=== PATIENT | male | born 1960 | race Caucasian/White ===

== ENCOUNTER 2017-01-27 21:04 | Emergency (ER) | payer MEDICARE ==
[~2017-01-27] VITALS: Ht 165.1 cm; Wt 67.3 kg
[~2017-01-27 21:04] MED LIST: ALBU-136 IH; ASCO500C19 PO; CLOP75TA55 PO; FLUT50PO IH; LEVE500T18 PO; LORA10TA19 PO; PHEN100C14 PO; PRED10TA5 PO; [UNRECOGNIZED DRUG - CODE] PO
[2017-01-27 21:11] VITALS: BP 131/66
[2017-01-27 21:59] LABS: HEMATOCRIT 42.7 % (36-52); HEMOGLOBIN 14.7 g/dL (12.0-18.0); MEAN CORPUSCULAR HEMOGLOBIN 32 pg (27-31); MEAN CORPUSCULAR HGB CONC 34 g/dL (33-37); MEAN CORPUSCULAR VOLUME 92 fL (80-94); PLATELET COUNT (AUTO) 184 K/uL (140-450); RED BLOOD CELL COUNT(AUTO) 4.62 MIL/uL (4.20-6.10); RED CELL DISTRIBUTION WIDTH 12.4 % (11.6-13.7); WHITE BLOOD COUNT (AUTO) 5.1 K/uL (4.8-10.8)
[2017-01-27 22:03] LABS: ANION GAP 13.4 (8-16); CARBON DIOXIDE 26.3 mmol/L (21-32); POTASSIUM 3.7 mmol/L (3.5-5.1); TOTAL BILIRUBIN 0.5 mg/dL (0.0-1.0)
--- NOTE | 2017-01-27 22:14 | NUR ---
TO ER BED 2
[2017-01-27 22:17] LABS: LYMPHOCYTES % (MANUAL) 26 % (20-46); MONOCYTES % (MANUAL) 8 % (5-12)
--- NOTE | 2017-01-27 22:25 | NUR ---
CAME IN WITH C/O FEVER AND COUGH SINCE WEDNESDAY.
--- NOTE | 2017-01-27 23:10 | NUR ---
ALL RESULTS BACK AND NOTED BY ERMD AND FOR D/C.
[2017-01-27 23:37] VITALS: BP 112/70
--- NOTE | 2017-01-27 23:37 | NUR ---
Patient discharged with v/s stable. Written and verbal after care instructions given and explained. Patient alert, oriented and verbalized understanding of instructions. Wheel Chair Assisted with to car. All questions addressed prior to discharge. ID band removed. Patient advised to follow up with PMD. Rx of PROMETHAZINE HYDROCHLORIDE/DEXTROMETHORPHAN HYDROBROMIDE given. Patient educated on indication of medication including possible reaction and side effects. Opportunity to ask questions provided and answered.
== END 2017-01-27 23:37 | disposition home or self-care (01) ==
LOC: MED 21:04
DX: J20.9 Acute bronchitis, unspecified (principal); I10 Essential (primary) hypertension; J45.909 Unspecified asthma, uncomplicated; Z86.73 Personal history of transient ischemic attack (TIA), and cerebral infarction without residual deficits
CPT/HCPCS: 36415; 71010; 80053; 85025; 99285; Q0092

== ENCOUNTER 2017-05-17 09:05 | Emergency (ER) | payer MEDICARE, OTHER ==
[~2017-05-17] VITALS: Ht 167.6 cm; Wt 68.0 kg
[2017-05-17 09:47] VITALS: BP 154/81
--- NOTE | 2017-05-17 09:51 | NUR ---
PT AMBULATED TO [facility]
--- NOTE | 2017-05-17 10:10 | NUR ---
PT COMES TO ER WITH C/O COUGH AND FLU LIKE SYMPTOMS X 1 MONTH, HAS SEEN HIS PRIMARY CARE PHYSICIAN AND TAKEN ANBX(UNKNOWN) NAME X 5 DAYS WITH COUGHMEDICINE AND NOT GETTING ANY BETTER. COUGH CONTINUES AND STATES SHE IS AFRAID HE'LL GET PNA AGAIN, LAST YEAR. RESP EVEN AND UNLABORED, ON RA@98%-LS-COARSE TO RT UPPER AND LOWER LOBES. PT DENIES ANY FEVERS/CHILLS, NO N/V/D. AT BEDSIDE. PT TAKES PLAVIX FOR EMBOLI DX SEVERAL YEARS AGO.
--- NOTE | 2017-05-17 10:23 | NUR ---
DR JAY AT BEDSIDE FOR EXAM
--- NOTE | 2017-05-17 10:29 | NUR ---
PT TAKEN TO XRAY
--- NOTE | 2017-05-17 10:40 | NUR ---
PT RETURNED FROM XRAY
[2017-05-17 11:31] VITALS: BP 139/85
--- NOTE | 2017-05-17 11:32 | NUR ---
Patient discharged with v/s stable. Written and verbal after care instructions given and explained. Patient verbalized understanding. Ambulatory with by caregiver. All questions addressed prior to discharge. Advised to follow up with PMD. ALBUTEROL, PREDNISO RX
== END 2017-05-17 11:32 | disposition home or self-care (01) ==
LOC: MED 09:05
DX: J98.01 Acute bronchospasm (principal); J45.909 Unspecified asthma, uncomplicated; Z79.899 Other long term (current) drug therapy; Z86.73 Personal history of transient ischemic attack (TIA), and cerebral infarction without residual deficits; I10 Essential (primary) hypertension
CPT/HCPCS: 71046; 99284

== ENCOUNTER 2018-03-15 09:14 | Emergency (ER) | payer MEDICARE, OTHER ==
[~2018-03-15] VITALS: Ht 170.2 cm; Wt 68.0 kg
--- NOTE | 2018-03-15 09:17 | NUR ---
PT AMBULATED TO ER BED 06
[2018-03-15 09:20] VITALS: BP 134/72
--- NOTE | 2018-03-15 09:33 | NUR ---
57Y/M BIB C/O COUGH, NASAL/CHEST CONGESTION BODYACHES FATIGUE X >1 WK. BED DOWN, BEDRAIL UP X 1, ER MD AWARE AND NOTIFIED OF PT STATUS. HX; SEIZURE, CVA (RIGHT SIDED WEAKNESS) RX; KEPPRA,DILANTIN, PLAVIX
[2018-03-15] MEDS ORDERED: NACL 0.9% 1,500 ML IV SCH (09:40)
[2018-03-15] MEDS ORDERED: diphenhydrAMINE 50 MG/ML VIAL IVP ONE (09:40)
[2018-03-15] MEDS ORDERED: DEXAMETHASONE 10 MG/ML VIAL IVP ONE (09:40)
[2018-03-15] MEDS ORDERED: ALBUTEROL SULFATE/IPRATROPIU 3 ML SOL IH ONE (09:40)
[2018-03-15] MEDS ORDERED: cefTRIAXone 1,000 MG VIAL ONE (09:57)
--- NOTE | 2018-03-15 10:08 | NUR ---
[facility] THERAPY GIVEN ORDERED ENCOURAGED PATIENT FOR DEEP BREATJHING DURING THERAPY
--- NOTE | 2018-03-15 10:20 | NUR ---
RT AT BEDSIDE
--- NOTE | 2018-03-15 10:25 | NUR ---
LAB AT BEDSIDE
--- NOTE | 2018-03-15 10:36 | NUR ---
UNABLE TO DO MED. RECON. FORGOT MED. LIST AND UNSURE OF DOSAGES
[2018-03-15 10:37] LABS: BASOPHILS % (AUTO) 0.4 % (0.0-2.0); EOSINOPHILS # (AUTO) 0.3 K/uL (0-0.4); EOSINOPHILS % (AUTO) 4.1 % (0.0-4.0); HEMATOCRIT 40.3 % (36-52); HEMOGLOBIN 13.4 g/dL (12.0-18.0); MEAN CORPUSCULAR HEMOGLOBIN 31 pg (27-31); MEAN CORPUSCULAR HGB CONC 33 g/dL (33-37); MEAN CORPUSCULAR VOLUME 92.8 fL (80-94); MONOCYTES % (AUTO) 14.7 % (1.7-9.3); NEUTROPHILS # (AUTO) 2.6 K/uL (1.8-7.7); NEUTROPHILS % (AUTO) 37.8 % (42.2-75.2); PLATELET COUNT (AUTO) 209 K/uL (140-450); RED BLOOD CELL COUNT(AUTO) 4.34 MIL/uL (4.20-6.10); RED CELL DISTRIBUTION WIDTH 12.7 % (11.6-13.7); WHITE BLOOD COUNT (AUTO) 6.9 K/uL (4.8-10.8)
[2018-03-15 10:46] LABS: ANION GAP 13.7 (8-16); CARBON DIOXIDE 25.5 mmol/L (21-32); CREATININE 0.9 mg/dL (0.7-1.3); POTASSIUM 3.2 mmol/L (3.5-5.1)
[2018-03-15 10:52] LABS: ALBUMIN 3.4 g/dL (3.4-5.0); TOTAL BILIRUBIN 0.3 mg/dL (0.0-1.0)
[2018-03-15 11:25] LABS: D-DIMER < 100 ng/ml (0-400)
--- NOTE | 2018-03-15 11:30 | NUR ---
PT IS SITTING UP IN BED, WIDE AWAKE, TALKING TO , VSS AT THIS TIME
[2018-03-15] MEDS ORDERED: AZTREONAM 1,000 MG in DEXTROSE 5% 50 ML IV SCH (11:45)
[2018-03-15] MEDS ORDERED: POTASSIUM CHLORIDE 10 MEQ TABER PO ONE (11:50)
[2018-03-15] MEDS ORDERED: AZTREONAM 1,000 MG VIAL ONE (12:36)
[2018-03-15 13:18] LABS: APPEARANCE,URINE CLEAR (CLEAR); BILIRUBIN,URINE NEGATIVE (NEGATIVE); BLOOD, URINE NEGATIVE (NEGATIVE); COLOR,URINE YELLOW (YELLOW); LEUKOCYTE ESTERASE ,URINE NEGATIVE (NEGATIVE); NITRITE, URINE NEGATIVE (NEGATIVE); PH,URINE 6.5 (5.0-9.0); UGLUCOSE NEGATIVE (NEGATIVE)
--- NOTE | 2018-03-15 13:59 | NUR ---
PATIENT RESTING AT THIS TIME; NO SIGNS OF DISTRESS.
--- NOTE | 2018-03-15 15:33 | NUR ---
PT EATING IN BED AT THIS TIME WITH FAMILY AT BEDSIDE
[2018-03-15 15:56] VITALS: BP 128/69
--- NOTE | 2018-03-15 15:56 | NUR ---
Patient does not wish to proceed with medical care recommended by DR. GARZA. Patient given information related to possible complications, up to and including , which could occur as a result of leaving hospital at this time. Patient verbalizes understanding of risks involved leaving against medical advice. Patient has signed AMA form. Dr. garza prescribed phenergan and levaquin to patient before discharge.
--- NOTE | 2018-03-15 15:56 | NUR ---
Patient discharged with v/s stable. Written and verbal after care instructions given and explained. Patient alert, oriented and verbalized understanding of instructions. Ambulatory with steady gait. All questions addressed prior to discharge. ID band removed. Patient advised to follow up with PMD. Rx of promethazine and levaquin given. Patient educated on indication of medication including possible reaction and side effects. Opportunity to ask questions provided and answered.
== END 2018-03-15 15:56 | disposition left against medical advice (07) ==
LOC: MED 09:14
DX: J18.9 Pneumonia, unspecified organism (principal); J32.9 Chronic sinusitis, unspecified; J40 Bronchitis, not specified as acute or chronic; E87.2 Acidosis; D72.821 Monocytosis (symptomatic); E87.6 Hypokalemia
CPT/HCPCS: 36415; 36600; 71045; 80053; 81003; 82803; 82948; 83605; 83735; 83880; 84484; 85025; 85379; 85610; 85730; 87040; 87086; 87804; 93005; 94640; 96365; 96367; 96375; 99284; J0696; J1100; J1200; J3490; J7620; Q0092

== ENCOUNTER 2019-04-03 18:36 | Emergency (ER) | payer OTHER ==
[~2019-04-03] VITALS: Ht 165.1 cm; Wt 68.0 kg
[2019-04-03 19:20] VITALS: BP 152/74
--- NOTE | 2019-04-03 19:23 | NUR ---
WHEEL CHAIR ASSISTED BY BACK TO THE LOBBY
--- NOTE | 2019-04-03 20:17 | NUR ---
PT WHEELCHAIRED TO BED 07
--- NOTE | 2019-04-03 20:17 | NUR ---
58 Y/O MALE BIB C/O HIGH BLOOD PRESSURE TODAY. BP 152/74. DENIES HEAD ACHE OR DIZZINESS. PAIN IS A 4/10 NONRADIATING ON THE LEFT ARM AT THIS TIME. BREATHING UNLABORED AND SYMMETRICAL. DENIES N/V/D. ERMD MADE AWARE OF STATUS. SIDE RAILS X1. PLACED ON MONITOR. AT BEDSIDE. WILL CONTINUE TO MONITOR. HX: STROKE, RT SIDED WEAKNESS, HTN RX:DENIES NKDA
[2019-04-03 21:56] LABS: ANION GAP 10.9 (8-16); CARBON DIOXIDE 28.8 mmol/L (21-32); CREATININE 0.9 mg/dL (0.7-1.3); POTASSIUM 4.7 mmol/L (3.5-5.1)
[2019-04-03 22:31] VITALS: BP 143/71
--- NOTE | 2019-04-03 22:31 | NUR ---
Patient discharged with v/s stable. Written and verbal after care instructions given and explained. Patient's verbalized understanding. Wheel Chair Assisted with to home. All questions addressed prior to discharge. Advised to follow up with PMD.
== END 2019-04-03 22:31 | disposition home or self-care (01) ==
LOC: MED 18:36
DX: I10 Essential (primary) hypertension (principal); J45.909 Unspecified asthma, uncomplicated; Z86.79 Personal history of other diseases of the circulatory system; Z79.899 Other long term (current) drug therapy
CPT/HCPCS: 36415; 80048; 84484; 93005; 99284

== ENCOUNTER 2019-04-20 15:57 | Emergency (ER) | payer OTHER ==
[~2019-04-20] VITALS: Ht 170.2 cm; Wt 72.1 kg
[2019-04-20 16:01] VITALS: BP 155/82
--- NOTE | 2019-04-20 16:05 | NUR ---
PT TO BED 9 WITH STEADY GAIT
[2019-04-20] MEDS ORDERED: NACL 0.9% 1,000 ML IV ONE (16:10)
--- NOTE | 2019-04-20 16:15 | NUR ---
PT TAKEN TO CT VIA WHEELCHAIR
--- NOTE | 2019-04-20 16:18 | NUR ---
BIB SELF C/O BRIGHT RED BLOOD IN STOOL AND WHEN WIPING. PATIENT DENIES ANY ABD PAIN/N/V/D. ABD SOFT, NON TENDER. BOWEL MOVEMENTS ARE REGULAR WITH BRIGHT RED STREAKS. PT REPORTS RECTAL PAIN WHEN DEFACATING. DENIES SOB/CP. RESP ARE EVEN AND UNLABORED. CAP REFILL <3. DENIES ANY DIZZINESS/LIGHTHEADEDNESS. PMH: ISCHEMIC STROKE 2006, HTN NKA
--- NOTE | 2019-04-20 16:27 | NUR ---
PT BACK FROM CT VIA WHEELCHAIR
--- NOTE | 2019-04-20 16:33 | NUR ---
DR CABRERA AT BEDSIDE FOR MSE
--- NOTE | 2019-04-20 16:48 | NUR ---
OBTAINED IV ACCESS IN LEFT FOREARM, PT SWIPED IV OFF AND IV ACCESS WAS LOST. ERMD MADE AWARE.
[2019-04-20 16:53] LABS: BASOPHILS % (AUTO) 0.7 % (0.0-2.0); EOSINOPHILS # (AUTO) 0.4 K/uL (0-0.4); EOSINOPHILS % (AUTO) 5.7 % (0.0-4.0); HEMATOCRIT 43.8 % (36-52); HEMOGLOBIN 14.7 g/dL (12.0-18.0); MEAN CORPUSCULAR HEMOGLOBIN 32 pg (27-31); MEAN CORPUSCULAR HGB CONC 34 g/dL (33-37); MEAN CORPUSCULAR VOLUME 94.3 fL (80-94); MONOCYTES # (AUTO) 0.7 K/uL (0.8-1.0); MONOCYTES % (AUTO) 10.4 % (1.7-9.3); NEUTROPHILS # (AUTO) 2.8 K/uL (1.8-7.7); NEUTROPHILS % (AUTO) 40.2 % (42.2-75.2); PLATELET COUNT (AUTO) 212 K/uL (140-450); RED BLOOD CELL COUNT(AUTO) 4.65 MIL/uL (4.20-6.10); RED CELL DISTRIBUTION WIDTH 12.9 % (11.6-13.7); WHITE BLOOD COUNT (AUTO) 6.9 K/uL (4.8-10.8)
[2019-04-20 17:12] LABS: ALBUMIN 4.1 g/dL (3.4-5.0); POTASSIUM 3.5 mmol/L (3.5-5.1); TOTAL BILIRUBIN 0.4 mg/dL (0.0-1.0)
[2019-04-20 17:15] LABS: ANION GAP 14.7 (8-16); CARBON DIOXIDE 26.8 mmol/L (21-32)
[2019-04-20 17:22] LABS: PROTHROMBIN TIME 10.1 secs (10.8-13.4)
[2019-04-20] MEDS ORDERED: ACETAMINOPHEN EXTRA STRENGTH 500 MG TAB PO ONE (17:45)
[2019-04-20 18:07] VITALS: BP 145/80
--- NOTE | 2019-04-20 18:07 | NUR ---
Patient discharged with v/s stable. Written and verbal after care instructions given and explained. Patient alert, oriented and verbalized understanding of instructions. Ambulatory with steady gait. All questions addressed prior to discharge. ID band removed. Patient advised to follow up with PMD. Rx of HYDROCORTISONE, TRAMADOL, SENOKOT given. Patient educated on indication of medication including possible reaction and side effects. Opportunity to ask questions provided and answered.
== END 2019-04-20 18:07 | disposition home or self-care (01) ==
LOC: MED 15:57
DX: K64.9 Unspecified hemorrhoids (principal); I10 Essential (primary) hypertension; Z79.899 Other long term (current) drug therapy
CPT/HCPCS: 36415; 80053; 85025; 85610; 85730; 99284

== ENCOUNTER 2020-07-30 15:38 | Emergency (ER) | payer OTHER ==
[~2020-07-30] VITALS: Ht 167.6 cm; Wt 70.3 kg
[~2020-07-30 15:38] MED LIST changes: +ALBU-118 IH; -ALBU-136 IH
[2020-07-30 15:40] VITALS: BP 157/80
[2020-07-30] MEDS ORDERED: fentaNYL citrate 0.05 MG/ML VIAL IVP ONE ×2 (16:05→18:30)
[2020-07-30 16:25] LABS: BASOPHILS # (AUTO) 0.2 K/uL (0.00-0.22); BASOPHILS % (AUTO) 1.9 % (0.0-2.0); EOSINOPHILS # (AUTO) 0.2 K/uL (0-0.4); EOSINOPHILS % (AUTO) 1.7 % (0.0-4.0); HEMATOCRIT 43.5 % (36-52); HEMOGLOBIN 14.9 g/dL (12.0-18.0); LYMPHOCYTES # (AUTO) 1.8 K/uL (2.0-11.5); LYMPHOCYTES % (AUTO) 17.7 % (20.5-51.1); MEAN CORPUSCULAR HEMOGLOBIN 31 pg (27-31); MEAN CORPUSCULAR HGB CONC 34 g/dL (33-37); MEAN CORPUSCULAR VOLUME 91.5 fL (80-94); MONOCYTES # (AUTO) 0.7 K/uL (0.8-1.0); MONOCYTES % (AUTO) 7.1 % (1.7-9.3); NEUTROPHILS # (AUTO) 7.4 K/uL (1.8-7.7); NEUTROPHILS % (AUTO) 71.6 % (42.2-75.2); PLATELET COUNT (AUTO) 220 K/uL (140-450); RED BLOOD CELL COUNT(AUTO) 4.75 MIL/uL (4.20-6.10); RED CELL DISTRIBUTION WIDTH 13.3 % (11.6-13.7); WHITE BLOOD COUNT (AUTO) 10.4 K/uL (4.8-10.8)
[2020-07-30 16:33] LABS: ANION GAP 12.6 (8-16); CARBON DIOXIDE 28.5 mmol/L (21-32); POTASSIUM 4.1 mmol/L (3.5-5.1)
[2020-07-30 16:40] LABS: ALBUMIN 4.7 g/dL (3.4-5.0); BILIRUBIN,DIRECT 0.1 mg/dL (0.0-0.3); PROTHROMBIN TIME 10.4 secs (10.8-13.4); TOTAL BILIRUBIN 0.5 mg/dL (0.0-1.0)
[2020-07-30] MEDS ORDERED: NITROGLYCERIN 50 MG/D5W PREMIX 250 ML IV ONE (16:45)
[2020-07-30] MEDS ORDERED: ASPIRIN 81 MG TAB.CHEW PO ONE ×2 (17:25→17:45)
[2020-07-30] MEDS ORDERED: hePARIN / DEXT 5% PREMIX 250 ML IV ONE (17:30)
[2020-07-30] MEDS ORDERED: HEPARIN PER PHARMACY MC PRN ×2 (17:30)
[2020-07-30 19:44] VITALS: BP 143/75
== END 2020-07-30 19:43 | disposition short-term general hospital (02) ==
LOC: MED 15:38
DX: I21.4 Non-ST elevation (NSTEMI) myocardial infarction (principal); Z20.822 Contact with and (suspected) exposure to COVID-19; R79.89 Other specified abnormal findings of blood chemistry; I10 Essential (primary) hypertension
CPT/HCPCS: 36415; 71045; 71275; 74174; 80048; 80076; 83605; 83690; 84484; 85025; 85610; 86886; 86900; 86901; 87426; 93005; 96361; 96365; 96368; 96375; 99291; J1644; J3010; J3490; Q9967; U0003

== ENCOUNTER 2022-05-07 10:28 | Emergency (ER) | payer OTHER ==
[~2022-05-07] VITALS: Ht 162.6 cm; Wt 74.5 kg
[2022-05-07 10:37] VITALS: BP 141/85
--- NOTE | 2022-05-07 10:43 | NUR ---
PT TO BED 11 AMBULATORY
--- NOTE | 2022-05-07 10:46 | NUR ---
61/M WALKED IN ACCOMPANIED BY C/O 05/01 HEAD AND NECK PAIN [place] 4 AM TODAY.DENIES FALL OR INJURY. REPORTS CVA 7 YEARS AGO WITH BASELINE RIGHT SIDED WEAKNESS. DENIES DIZZINESS OR BLURRY VISION. AAO4, AMBULATORY, VITALS STABLE. PMH: HTN, STROKE 7 YEARS AGO, HEART ATTACK 2 YEARS AGO
--- NOTE | 2022-05-07 10:51 | NUR ---
Patient being evaluated by physician at bedside.
[2022-05-07] MEDS ORDERED: KETOROLAC 30 MG/ML VIAL IM ONE (11:00)
[2022-05-07] MEDS ORDERED: KETOROLAC 30 MG/ML VIAL ONE (11:06)
[2022-05-07] MEDS ORDERED: NAPR-1704 PO (12:43)
[2022-05-07 12:45] VITALS: BP 137/82
== END 2022-05-07 12:45 | disposition home or self-care (01) ==
LOC: MED 10:28
DX: G44.209 Tension-type headache, unspecified, not intractable (principal); M54.2 Cervicalgia; I25.10 Atherosclerotic heart disease of native coronary artery without angina pectoris; I10 Essential (primary) hypertension; Z79.899 Other long term (current) drug therapy
CPT/HCPCS: 93005; 96372; 99283; J1885

== ENCOUNTER 2022-06-03 10:53 | Emergency (ER) | payer OTHER ==
[~2022-06-03] VITALS: Ht 166.4 cm; Wt 73.0 kg
[~2022-06-03 10:53] MED LIST changes: -ALBU-118 IH; -ASCO500C19 PO; -CLOP75TA55 PO; -FLUT50PO IH; -LEVE500T18 PO; -LORA10TA19 PO; +NAPR-1704 PO; -PHEN100C14 PO; -PRED10TA5 PO; -[UNRECOGNIZED DRUG - CODE] PO
[2022-06-03 10:54] VITALS: BP 136/85
--- NOTE | 2022-06-03 11:01 | NUR ---
pt ambulated to bed 12
--- NOTE | 2022-06-03 11:46 | NUR ---
NURSING ASSESSMENT COMPLETED. SWABS SENT TO LAB.
[2022-06-03 11:50] VITALS: BP 122/85
[2022-06-03] MEDS ORDERED: ACET-10509 PO (12:53)
== END 2022-06-03 11:50 | disposition home or self-care (01) ==
LOC: MED 10:53
DX: J02.9 Acute pharyngitis, unspecified (principal); R05.9 Cough, unspecified; Z20.822 Contact with and (suspected) exposure to COVID-19; I10 Essential (primary) hypertension; Z86.73 Personal history of transient ischemic attack (TIA), and cerebral infarction without residual deficits; Z86.69 Personal history of other diseases of the nervous system and sense organs; Z79.899 Other long term (current) drug therapy; Z79.1 Long term (current) use of non-steroidal anti-inflammatories (NSAID)
CPT/HCPCS: 87081; 99283

== ENCOUNTER 2022-10-16 18:54 | Emergency (ER) | payer OTHER ==
[~2022-10-16] VITALS: Ht 170.2 cm; Wt 72.6 kg
[~2022-10-16 18:54] MED LIST changes: +ACET-10509 PO
[2022-10-16 19:11] VITALS: BP 139/77; PULSE 70; RESP 18; TEMP 98.4; O2SAT 95
[2022-10-16] MEDS ORDERED: OFLOS OP ×2 (19:33→21:41)
[2022-10-16 19:35] VITALS: BP 139/77; PULSE 70; RESP 18; TEMP 98.4; O2SAT 95
--- NOTE | 2022-10-16 19:35 | NUR ---
Patient discharged with v/s stable. Written and verbal after care instructions given and explained. New rx oclufox. Patient verbalized understanding. Ambulatory with steady gait. All questions addressed prior to discharge. Advised to follow up with PMD.
--- NOTE | 2022-10-16 19:35 | NUR ---
Seen and evaluated by ER Dr. Dutton
== END 2022-10-16 19:35 | disposition home or self-care (01) ==
LOC: MED 18:54
DX: H10.9 Unspecified conjunctivitis (principal); Z79.899 Other long term (current) drug therapy
CPT/HCPCS: 99283

== ENCOUNTER 2023-02-27 08:36 | Emergency (ER) | payer OTHER ==
[~2023-02-27] VITALS: Ht 162.6 cm; Wt 69.9 kg
[~2023-02-27 08:36] MED LIST changes: +OFLOS OP
[2023-02-27 08:44] VITALS: BP 127/75; PULSE 67; RESP 18; TEMP 97.6; O2SAT 98
[2023-02-27] MEDS ORDERED: IBUPROFEN 600 MG TAB PO ONE (10:30)
[2023-02-27] MEDS ORDERED: ACET-10509 PO (12:26)
[2023-02-27 12:34] VITALS: BP 125/70; PULSE 66; RESP 18; TEMP 97.6; O2SAT 98
== END 2023-02-27 12:34 | disposition home or self-care (01) ==
LOC: MED 08:36
DX: S93.491A Sprain of other ligament of right ankle, initial encounter (principal); I11.9 Hypertensive heart disease without heart failure; E11.9 Type 2 diabetes mellitus without complications; Z86.73 Personal history of transient ischemic attack (TIA), and cerebral infarction without residual deficits; Z79.4 Long term (current) use of insulin; Z79.899 Other long term (current) drug therapy; W18.30XA Fall on same level, unspecified, initial encounter; Y93.89 Activity, other specified; Y92.89 Other specified places as the place of occurrence of the external cause; Y99.8 Other external cause status
CPT/HCPCS: 73610; 73630; 99284